=== PATIENT | female | born 1945 | race Caucasian/White ===

== ENCOUNTER 2023-11-08 23:19 | Inpatient (IN) | payer MEDICARE, OTHER, SELFPAY ==
[2023-11-08] VITALS (10 sets, daily range): BP systolic 86–110; BP diastolic 50–74; BMI 19.3
[2023-11-08] MEDS: DUONEB 3 ML INH (21:51)
[2023-11-08] MEDS: SOLU-MEDROL PF 125 MG IV (21:53)
[2023-11-08 22:09] LABS: % Basophils 0.3 % (0-2); % Eosinophils 0.1 % (0-6); % Lymphocytes 4.2 % (20.5-51.1); % Monocytes 4.4 % (1.7-9.3); Absolute Immature Granulocytes 0.1 10^3/uL (0-0.05); Absolute Lymphocytes 0.5 10^3/uL (1.2-3.4); Absolute Monocytes 0.5 10^3/uL (0.1-0.6); Absolute Neutrophils 10.4 10^3/uL (1.4-6.5); Hematocrit 34.3 % (37.0-47.0); Hemoglobin 11.7 g/dL (12.0-16.0); Mean Corp Hgb Conc. 34.1 g/dL (33.0-37.0); Mean Corpuscular Hgb 31.6 pg (27.0-31.0); Mean Corpuscular Volume 92.7 fL (81.0-99.0); Mean Platelet Volume 10.3 fL (7.4-10.4); Nucleated Red Blood Cells % 0 %; Platelet Count 293 10^3/uL (130-400); Red Cell Dist. Width 13.7 % (11.5-14.5); White Blood Cell Count 11.5 10^3/uL (4.8-10.8)
[2023-11-08 22:23] LABS: COVID-19 Antigen Negative (Negative)
[2023-11-08] MEDS: CARDIZEM 10 MG IV (22:24)
--- NOTE | 2023-11-08 22:24 | ED.GENMED ---
History of Present Illness
General
Chief Complaint: Breathing Problem
Source: patient, records and family
Exam Limitations: none
Time Seen by Provider: 11/08/23 21:41
Nursing documentation reviewed up to this point in time: agreed with
Travel History
Have you had any contact with someone who has COVID-19?: No
Do you have any symptoms of coronavirus? Fever > 100 degrees, chills, cough, shortness of breath, sore throat, loss of taste or smell, muscle aches, or headache?: No
History of Present Illness
History of Present Illness:
78-year-old female with a past medical history of COPD, chronic respiratory failure on 2 L home oxygen, atrial fibrillation, hyperlipidemia who presents to the emergency room from home with her daughter (RN here) and son for evaluation of shortness
of breath. Patient reports onset of hacking dry cough and increasing shortness of breath over the past week or so. Family noted increasing work of breathing over that period of time. Symptoms seem to be worsening which prompted trip to the
emergency room tonight. Patient denies any fevers or chills. Denies any swelling or pain in the legs. Has not had any chest pain. According to family she has had increasing weakness had a minor fall out of bed a few days ago and laid on the
ground for a few hours as a result of this weakness. She apparently had an outpatient stress test and had some chest imaging as part of this shortly after onset of symptoms. Chest imaging apparently showed a questionable pneumonia although patient
has not been on antibiotics.
Past History
Past History
ED Past Medical History: Arrthythmia, COPD and Other; Negative CHF
ED Past Surgical History: Orthopedic
Social History
Tobacco: Smoker
Alcohol: None
Drug: None
Personal:
Living: with family
Employment: Retired
Family History
Family History: Other (Noncontributory)
Review of Systems
Review of Systems
All Other Systems: ROS reviewed and negative except as documented in HPI and ROS
Constitutional: Reports fatigue; Denies fever or chills
EENT: Reports runny nose; Denies sore throat
Respiratory: Reports cough and trouble breathing
Cardiac: Denies chest pain or diaphoresis
ABD/GI: Denies abdominal pain, nausea or vomiting
: Denies flank pain
Musculoskeletal: Denies edema, neck pain or back pain
Neurological: Denies dizzy or headache
Phy Exam
Physical Exam
Physical Exam:
General: Awake, alert; no acute distress
Head: Normocephalic, atraumatic
Eyes: Conjunctiva normal, sclera anicteric
Throat: Airway intact, dry mucous membranes
Neck: Trachea midline, supple without meningismus
Lungs: Patient is saturating 95% on her normal 2 L home oxygen; she does have some mild tachypnea but is not in respiratory distress; she has diffuse bilateral expiratory wheezing with frequent coughing; wheezing more pronounced to the left lung base
Heart: Regular rate and rhythm, no murmurs, gallops, or rubs appreciated
Abd: Soft, non distended, nontender
Neuro: Cranial nerves grossly intact, speech fluid
Skin: no rash
Extremities: No edema in extremities, warm and well-perfused
Scores
Heart Failure Risk
Heart Failure Risk Score: Not Applicable
Heart Score for Chest Pain Patients
STEMI patient?: Not applicable
Withdrawal Assessment of Alcohol
Withdrawal Assessment Completed?: Not applicable
Course
Orders/Labs/Results
Orders:
Orders
11/08/23 21:42
Electrocardiogram (*1) Urgent
Reason for Study: Shortness of Breath
EKG- Treatment ONCE
Ipratropium/Albuterol Sulfate [Duoneb] 3 ml INH R NOW STA
MethylPREDNISolone PF [Solu-Medrol Pf] 125 mg IV NOW STA
CR Chest Portable - 1 View Urgent
Comment:
Reason For Exam: sob
Reason Study Needs to be Portable: Unable to Transport
11/08/23 21:46
COVID-19 Antigen Urgent
Source: Nasal Swab
Complete Blood Count/With Diff Urgent
Comprehensive Metabolic Panel Urgent
NT-proBNP Urgent
Troponin I Urgent
Influenza A+B Rapid Molecular Urgent
ANDREIA Source: Nasal Swab
Specimen Description:
11/08/23 22:16
Diltiazem 125 mg/125 ml Nss [Cardizem] 125 mg in 125 ml IV NOW
Initial dose in mg/hr, then titrate:: 5
Titrate to keep:: Heart rate 80-100 bpm
Titrate by mg/hr:: 5 mg/hr
Frequency of titrations (minutes):: 15
Maximum dose in mg/hr:: 15
Diltiazem HCl [Cardizem] 10 mg IV NOW STA
11/08/23 22:20
CPK [Creatine Phosphokinase] Urgent
0.9% Sodium Chloride 500 ml [Nss] 500 ml IV BOLUS
LevoFLOXacin 750 MG/150 ML [Levaquin] 750 mg in 150 ml IV NOW
Abnormal Lab Results
11/08/23
21:46
WBC 11.5 H 10^3/uL
(4.8-10.8)
RBC 3.70 L 10^6/uL
(4.20-5.40)
Hgb 11.7 L g/dL
(12.0-16.0)
Hct 34.3 L %
(37.0-47.0)
MCH 31.6 H pg
(27.0-31.0)
Abs Immat Gran (auto) 0.1 H 10^3/uL
(0-0.05)
Absolute Neuts (auto) 10.4 H 10^3/uL
(1.4-6.5)
Absolute Lymphs (auto) 0.5 L 10^3/uL
(1.2-3.4)
Immature Gran % 1.0 H %
(0-0.5)
Neutrophils % 90.0 H %
(42.2-75.2)
Lymphocytes % 4.2 L %
(20.5-51.1)
11/08/23 21:46
Vital Signs
Initial and Last Documented VS:
Initial Vital Signs
Temp Pulse Resp BP Pulse Ox
37.0 C 81 25 110/50 95
11/08/23 21:37 11/08/23 21:37 11/08/23 21:37 11/08/23 21:37 11/08/23 21:37
Last Documented Vital Signs
Temp Pulse Resp BP Pulse Ox
37.0 C 81 25 110/50 95
11/08/23 21:37 11/08/23 21:37 11/08/23 21:37 11/08/23 21:37 11/08/23 21:37
MDM/Problems Addressed
Differential Diagnosis Includes:
COPD exacerbation, pneumonia, CHF
MDM/Problems Addressed:
78-year-old female presents for evaluation of worsening cough and shortness of breath over the past week. Also having increasing generalized weakness. There was a question of pneumonia on outpatient imaging but patient is not currently on
antibiotics. Vital signs significant for tachypnea. Pulse ox acceptable on her normal 2 L of home oxygen. Physical exam as above. Plan to place an IV check labs including a CBC and a CMP, lactate, blood cultures. Will check BNP. Check a chest
x-ray and EKG. Swab for COVID and influenza. Treat with DuoNeb and steroids. Monitor closely reassess at the above.
Clinical reassessment after DuoNeb patient still with significant bilateral wheezing. Unfortunately after receiving neb treatment heart rate increased repeat EKG shows A-fib with RVR heart rates in the 140s to 160s. Will treat with diltiazem for
some rate control and provide some fluids. Chest x-ray reviewed by me shows likely minor opacity retrocardiac on the left side as well as right basilar opacity. Will cover with Levaquin as patient is penicillin allergic.
Initial CBC shows slight leukocytosis to 11.5. Marginal anemia. 90% neutrophils. I think at this point will admit for continued management of COPD exacerbation with likely pneumonia as well and A-fib with RVR. Case discussed with hospitalist for
admission.
Chronic conditions affecting care:
Atrial fibrillation, COPD, chronic respiratory failure
Acute Exacerbation and/or Progression of Chronic Illness:
Acute COPD exacerbation managed with DuoNeb and steroids
Acute exacerbation of A-fib with RVR today�treated with diltiazem
Acute Exacerbation and/or Progression of Chronic Illness: Arrhythmia and COPD
*Pulse Oximetry
Patient hypoxic: no
*EKG
Interpreted by ED Provider?: Yes
Heart Rate: 169
Rate: tachycardiac
Rhythm: a-fib
[place]: left axis deviation
Interval: normal interval
QRS Pattern: normal QRS
Ischemia: non-specific ST changes
*Critical Care Note
Total Time (30-74mins, 75-104mins- exclusive of procedures): Not Applicable
Data Reviewed
Review of Other/Old Records Reveals: Labs and Records
Source: patient, records and family
Patient Management
Discussion with other providers: Hospitalist (Discussed with hospitalist)
Escalation/DeEscalation of care consider admission/obs:
Admission indicated
ED Attending Note
-
Portions of this chart may have been created with voice recognition software.� Occasional wrong word or��sound alike� substitutions may have occurred due to the inherent limitations of voice recognition software.
Discharge Plan
Departure
Patient Disposition: Admit
Date of Disposition: 11/08/23
Time of Disposition: 22:31
Admit to doctor: Mishel
Presentation/result/management discussed w/ accepting MD/DO: Hospitalist
Discharge Problem:
COPD with exacerbation, Atrial fibrillation with RVR, Pneumonia
Prescriptions:
No Action
fluticasone propion-salmeterol [Wixela Inhub] 250-50 mcg/dose blister with device
1 ea INHALATION R BID
ascorbic acid (vitamin C) [Vitamin C] 1,000 mg Tablet
1,000 mg PO DAILY
albuterol sulfate 2.5 mg /3 mL (0.083 %) solution for nebulization
2.5 mg inhalation R Q6 PRN (Reason: sob)
diltiazem HCl 240 mg capsule,extended release 24hr
240 mg PO DAILY
hydrocodone-acetaminophen 10-325 mg tablet
1 tab PO Q4H PRN (Reason: moderate pain)
Patient Comments:
12/21/2022: last filled 11/21/22, 120 tabs for 20 days from [id number]
aspirin 81 mg Tablet,Delayed Release (Dr/Ec)
81 mg PO DAILY
alprazolam 0.5 mg tablet
0.5 mg PO TID PRN (Reason: anxiety)
Patient Comments:
12/21/2022: last filled 12/05/22, 90 tabs for 30 days from [facility][id number]
citalopram 20 mg tablet
20 mg PO DAILY
pantoprazole 40 mg tablet,delayed release (DR/EC)
40 mg PO DAILY
montelukast 10 mg tablet
10 mg PO DAILY
pyridoxine (vitamin B6) [Vitamin B-6] 100 mg Tablet
100 mg PO DAILY
levothyroxine [Synthroid] 112 mcg tablet
112 mcg PO MOTUWETHFRSA
levothyroxine [Synthroid] 112 mcg tablet
56 mcg PO JEAN
rosuvastatin 5 mg tablet
5 mg PO DAILY
calcium carbonate-vitamin D3 [Calcium 500 + D] 500 mg-10 mcg (400 unit) Tablet,Chewable
1 tab PO BID
cholecalciferol (vitamin D3) [Vitamin D3] 25 mcg (1,000 unit) Tablet
75 mcg PO QPM
Prolia 60 mg/mL Syringe
60 mg SC [id number]
Spiriva Respimat 2.5 mcg/actuation mist
2 puff INHALATION R DAILY
levalbuterol HCl 0.63 mg/3 mL solution for nebulization
0.63 mg INHALATION R TID
fluticasone propionate 50 mcg/actuation spray,suspension
1 spray INTRANASAL DAILY
nicotine 14 mg/24 hr Patch 24 Hour
14 mg transdermal DAILY Qty: 14 0RF
prednisone 20 mg Tablet
10 mg PO DAILY Qty: 0 0RF
diazepam 5 mg Tablet
5 mg PO TID PRN (Reason: muscle spasm) Qty: 0 0RF
Patient Comments:
12/21/2022: last filled 12/20/22, 90 tabs for 30 days from [facility]#[id number]
Interventions
Interventions:
*General Assessment Last Done: 11/08/23 21:37
*ED COVID-19 Vaccine History Last Done: 11/08/23 21:37
[2023-11-08] MEDS: NSS 500 IV (22:25)
[2023-11-08] MEDS: CARDIZEM 125 IV (22:25)
--- NOTE | 2023-11-08 22:25 | HPS.HSE ---
Addendum entered and electronically signed by Baudilio Florentino MD 11/08/23 22:56:
I saw and examined the patient.
The DIRECTOR OF INSTITUTIONAL RESEARCH or PA's note was reviewed and I agree with the note.
Comment:
HPI
78F from Home with daughter RN HX COPD, chronic respiratory failure on 2 L home oxygen, atrial fibrillation, hyperlipidemia evalauting at ER shortness of breath.
Reports onset of hacking dry cough and increasing shortness of breath over the past week or so.
Family noted increasing work of breathing over that period of time.
Symptoms seem to be worsening which prompted trip to the emergency room tonight.
According to family she has had increasing weakness had a minor fall out of bed a few days ago and laid on the ground for a few hours as a result of this weakness.
She apparently had an outpatient stress test
ROS:
Denies any fevers or chills.
Denies any swelling or pain in the legs.
No chest pain. and had some chest imaging as part of this shortly after onset of symptoms.
PMHX : Arrhythmia, COPD
PSHX: Orthopedic
SHX
Tobacco: Smoker
Alcohol: None
Drug: None
Personal:
Living: with family
Employment: Retired
FHX: Other (Noncontributory)
Reviewed VS: Tachypneic POx 95 on 2 L otherwise unremarkable
PE
Gen: no acute distress
HEENT: anicteric , no pallor
Neck: supple
Lungs: mild tachypnea plus diffuse bilateral expiratory wheezing, frequent coughing
Cor: RRR Murmur on examination, HX MVP
Abdomen: Soft, non distended, nontender
FLIGHT COMMUNICATIONS OPERATOR: NFND
MS: No edema in extremities
Psych: appropriate
Data
WCC 11.5
hgb 11.7 - baseline 11- 12
Na 131
Nl Cr and nl GFR
Pending CPKs
Pending TPNI
Pending pBNP
Pending PCT
NEG Covid Ag
CXR report: no acute pathology
Last hospitalist admission: 12/22/23 - 12/24/22
DC DXs:
1. Syncope.
2. Chronic tremor.
3. Progressive cognitive impairment.
4. Paroxysmal atrial fibrillation.
5. Chronic obstructive pulmonary disease on chronic oxygen.
6. Active smoker.
7. Hypothyroidism.
8. Hyperlipidemia.
9. Gastroesophageal reflux disease.
10.Depression, anxiety.
11.Chronic back pain.
ASSESSMENT & PLAN
AE COPD with bronchospasm
HX chr hypoxic RF on home O2 - stable
Current smoker - refuse Nicotine patch
NEG CXR for acute process
- IV Decadron 6mg q8H
- DuoNebs qid and PRN
- Empiric IV LVQ
- cont home O2 2l
- EKG to monitor QTc
- Pul consult
Fast AF
HX Prx AF but not on AC
P Card at OSH
- Diltiazem gtt
- DCA Card consult
HX mitral valve prolapse
Pending pro BNP
- cont CHILD CARE COORDINATOR PO Lasix
HX intention tremor/memory impairment - MCI ?
-Possibly underlying dementia versus Parkinson's disease
-Outpatient neurology follow-up
Hypothyroidism
Hyperlipidemia
- cont. Statin
GERD
- cont. Protonix
Depression/anxiety
- cont. citalopram
- cont. CHILD CARE COORDINATOR Xanax
Chronic back pain
- cont. hydrocodone/Tylenol
DVT Px: LMWH
Code: DNR
IMU
Original Note:
Family Physician
-
Family Physician:
Chief Complaint
-
sob
non productive cough
History of Present Illness
78-year-old female with a past medical history of COPD, chronic respiratory failure on 2 L home oxygen, atrial fibrillation, hyperlipidemia presented to us with sob, worse with activity, non productive cough for past one week. denied chest pain.
denied fever, chills. denied TODD, dizzy or syncopal episode. denied abdominal pain, n,v,d. denied dysuria or hematuria.
on arrival to ER noted atrial fib with RVR. initiated on Cardizem drip. steroids nebs for COPD exacerbation. admitting for further management.
Medical History
Past Medical History
Past Medical History: Reports Other
Additional Past Medical History:
COPD on 2 L at night, paroxysmal atrial fibrillation on aspirin, mitral valve prolapse, active smoker, anxiety/depression, GERD, thyroid cancer�
Past Surgical History: Reports Other
Additional Past Surgical History:
spinal fusion
thyroidectomy for thyroid cancer.
Social History
Tobacco: Smoker
Alcohol: None
Drug: None
Personal: Single
Living: With Family
Family History
Family History: Not pertinent
Allergies / Home Medications
Allergies reflects when Allergies were last updated in [email or web address].
Home Medications with original date entered in [email or web address]
Allergy/Medication List:
Allergies
Allergy/AdvReac Type Severity Reaction Status Date / Time
clindamycin Allergy Unknown Verified 11/08/23 21:38
Penicillins Allergy Rash Verified 11/08/23 21:38
tetracycline Allergy Unknown Verified 11/08/23 21:38
Home Medications
albuterol sulfate 2.5 mg/3 mL (0.083 %) solution for nebulization 2.5 mg inhalation R Q6 PRN sob 07/05/22
alprazolam 0.5 mg tablet 0.5 mg PO TID PRN anxiety 07/05/22
ascorbic acid (vitamin C) 1,000 mg tablet (Vitamin C) 1,000 mg PO DAILY Supplement 07/05/22
aspirin 81 mg tablet,delayed release 81 mg PO DAILY Blood clot prevention/tx 07/05/22
calcium carbonate 500 mg-vitamin D3 10 mcg (400 unit) chewable tablet (Calcium 500 + D) 1 tab PO BID Supplement 07/05/22
cholecalciferol (vitamin D3) 25 mcg (1,000 unit) tablet (Vitamin D3) 75 mcg PO QPM Supplement 07/05/22
citalopram 20 mg tablet 20 mg PO DAILY Depression 07/05/22
denosumab 60 mg/mL subcutaneous syringe (Prolia) 60 mg SC [id number] osteoporosis 07/05/22
diltiazem HCl 240 mg capsule,extended release 24 hr 240 mg PO DAILY Arrhythmia 07/05/22
fluticasone 250 mcg-salmeterol 50 mcg/dose blistr powdr for inhalation (Raji Inhub) 1 ea inhalation R BID Lung/breathing issues 07/05/22
hydrocodone 10 mg-acetaminophen 325 mg tablet 1 tab PO Q4H PRN moderate pain 07/05/22
levothyroxine 112 mcg tablet (Synthroid) 56 mcg PO JEAN Thyroid 07/05/22
levothyroxine 112 mcg tablet (Synthroid) 112 mcg PO MOTUWETHFRSA Thyroid 07/05/22
montelukast 10 mg tablet 10 mg PO DAILY Allergies 07/05/22
pantoprazole 40 mg tablet,delayed release 40 mg PO DAILY Gastrointestinal issue 07/05/22
pyridoxine (vitamin B6) 100 mg tablet (Vitamin B-6) 100 mg PO DAILY Supplement 07/05/22
rosuvastatin 5 mg tablet 5 mg PO DAILY High cholesterol 07/05/22
tiotropium bromide 2.5 mcg/actuation mist for inhalation (Spiriva Respimat) 2 puff inhalation R DAILY Lung/breathing issues 07/05/22
fluticasone propionate 50 mcg/actuation nasal spray,suspension 1 spray intranasal DAILY Allergies 12/21/22
levalbuterol HCl 0.63 mg/3 mL solution for nebulization 0.63 mg inhalation R TID Lung/breathing issues 12/21/22
diazepam 5 mg tablet 5 mg PO TID PRN muscle spasm #0 tabs 12/24/22
nicotine 14 mg/24 hr daily transdermal patch 14 mg transdermal DAILY #14 ea 12/24/22
prednisone 20 mg tablet 10 mg PO DAILY Anti-inflammatory #0 tabs 12/24/22
prednisone 5 mg tablet 5 mg PO DAILY 11/08/23
Review of Systems
-
Constitutional: Reports No Symptoms
EENT: Reports No Symptoms
Respiratory: Reports Cough and Trouble Breathing
Cardiac: Reports No Symptoms
Abdomen/GI: Reports No Symptoms
: Reports No Symptoms
Musculoskeletal: Reports No Symptoms
Skin: Reports No Symptoms
Neurological: Reports No Symptoms
Endocrine: Reports No Symptoms
Hematologic/Lymphatic: Reports No Symptoms
Psych: Reports No Symptoms
Physical Exam
Vital Signs
Vital Signs
Temp Pulse Resp BP Pulse Ox
98.6 F 81 25 110/50 95
11/08/23 21:37 11/08/23 21:37 11/08/23 21:37 11/08/23 21:37 11/08/23 21:37
Physical Exam
General: Well Developed, Well Nourished and No Apparent Distress
HEENT: NormoCephalic, Moist mucous membranes and Atraumatic
Respiratory: Wheezes and Rales
Cardiac: S1/S2 and Regular Rhythm; No Murmur or Rub
GI: Soft, Non Tender, Non Distended and Normal Bowel Sounds; No Organomegaly
Rectal: Deferred by Provider
Musculoskeletal: No Clubbing, No Cyanosis and No Edema
Skin: No Rash
Neuro: AO x 3 and Nonfocal/grossly intact
Psych: Calm
Laboratory Results
-
11/08/23 21:46
Data Reviewed
-
Lab Data: Labs Reviewed by me
Impression/Plan
-
#COPD exacerbation
-Chronic respiratory failure, o2 dependant at home
-uses 2l at home
-chest x ray with No acute cardiopulmonary process.
-nebs prn for sob/wheezing
-continue supplemental oxygen to keep sat>92
-Decadron 6mg every 8 hours
-wean as tolerated
-pulmonary consulted
#atrial fib with RVR
-Cardizem drip continued
-cardiology cons pain consulted
Active smoker
-denied nicotine patch
-encourage smoking cessation
#Hypothyroidism
-levothyroxine continued
#Hyperlipidemia
-Continue statin
#GERD
-Continue Protonix
#Depression/anxiety
-Continue citalopram
-Continue Xanax
#Chronic back pain
-Continue hydrocodone/Tylenol
#DNR
[2023-11-08 22:26] LABS: ALT (SGPT) 29 U/L (0-35); AST (SGOT) 35 U/L (14-36); Albumin 3.2 g/dl (3.5-5.0); Alkaline Phosphatase 70 U/L (38-126); Blood Urea Nitrogen 20 mg/dl (7-17); Calcium 8.7 mg/dl (8.4-10.2); Carbon Dioxide 28 mmol/L (22-30); Chloride 99 mmol/L (98-107); Estimated Creatinine Clearance 65 ml/min; Glucose 96 mg/dl (70-99); Sodium 131 mmol/L (135-145); Total Bilirubin 0.5 mg/dl (0.2-1.3); Total Protein 5.7 g/dl (6.3-8.2); eGFR > 60.00
[2023-11-08] MEDS: LEVAQUIN 150 IV (22:30)
[2023-11-08 22:33] LABS: NT-proBNP 3220 pg/ml; Troponin I 0.047 ng/ml
[2023-11-09] VITALS (16 sets, daily range): BP systolic 90–113; BP diastolic 47–82; PULSE 83–88; O2SAT 91; BMI 20.4
[2023-11-09 00:02] LABS: Creatine Phosphokinase 85 U/L (30-135)
--- NOTE | 2023-11-09 00:36 | PTCARENOTE ---
Converted to NSR.
[2023-11-09] MEDS: DECADRON 6 MG IV ×4 (01:20→23:47)
--- NOTE | 2023-11-09 01:44 | PTCARENOTE ---
Caring for pt overnight. Admit to floor. Daughter at bedside. pt aaox3, pleasant. When arrived pt was Afib on monitor & cardizem gtt. Shortly after arriving pt flipped back into NSR around 0036. HR 80's. EXTRACTION SUPERVISOR aware, no ekg ordered. Orders to hold
cardizem gtt for 1 hour and monitor if should continue to or not. BP's soft. Continues on 2LNC. Pt c/o back pain, when assessed pt had a moderate sized scab on her left upper back with redness surrounding it. Pt stated she uses a heating pad at home
& daughter confirmed it is from the heating pad. wound consult in, if necessary. NO other issues at this time. Call mead in reach. Bed alarm on. Will monitor HR & rhythm.
[2023-11-09] MEDS: SYNTHROID 112 MCG PO (05:26)
[2023-11-09 05:53] LABS: Hematocrit 30.4 % (37.0-47.0); Hemoglobin 10.3 g/dL (12.0-16.0); Mean Corp Hgb Conc. 33.9 g/dL (33.0-37.0); Mean Corpuscular Hgb 31.7 pg (27.0-31.0); Mean Corpuscular Volume 93.5 fL (81.0-99.0); Mean Platelet Volume 10.4 fL (7.4-10.4); Platelet Count 252 10^3/uL (130-400); Red Blood Cell Count 3.25 10^6/uL (4.20-5.40); Red Cell Dist. Width 13.7 % (11.5-14.5); White Blood Cell Count 8.3 10^3/uL (4.8-10.8)
[2023-11-09 05:57] LABS: Blood Urea Nitrogen 23 mg/dl (7-17); Calcium 8.2 mg/dl (8.4-10.2); Carbon Dioxide 31 mmol/L (22-30); Chloride 101 mmol/L (98-107); Estimated Creatinine Clearance 69 ml/min; Glucose 133 mg/dl (70-99); Potassium 4.4 mmol/L (3.5-5.1); Sodium 133 mmol/L (135-145); eGFR > 60.00
[2023-11-09] MEDS: PROTONIX 40 MG PO (08:21)
[2023-11-09] MEDS: SINGULAIR 10 MG PO (08:21)
[2023-11-09] MEDS: CRESTOR 5 MG PO (08:21)
[2023-11-09] MEDS: ASPIR LOW (ENTERIC COATED) 81 MG PO (08:21)
[2023-11-09] MEDS: OSCAL 500 + D 500 MG PO ×2 (08:21→20:55)
[2023-11-09] MEDS: CELEXA 20 MG PO (08:21)
[2023-11-09] MEDS: SPIRIVA RESPIMAT 2.5 MCG 2 PUFF INH (08:32)
--- NOTE | 2023-11-09 09:42 | CON.CAR ---
Addendum entered and electronically signed by Nava Jameson MD 11/09/23 11:58:
I saw and examined the patient.
The BOOK ILLUSTRATOR's note was reviewed and I agree with the note.
Comment: 78 y/o pt who is followed by Dr. Morris [facility] cardiology for mild , mild-mod MS, PAF, SVT, with COPD� who presented with worsening SOB and palpitations.� She was noted to be in atrial fibrillation with rapid ventricular response when
she arrived. This has since resolved. Currently, she is very fatigued but otherwise without complaint. On exam she is lethargic but then arousable. She has diffuse rhonchi when listened on lung exam. Regular rate and rhythm. No extremity
edema. We discussed her atrial fibrillation. She does not want to discuss any treatment plan without her primary cable tender involvement. She would rather follow-up as an outpatient. Given she is back in sinus rhythm, we resumed her diltiazem.
I again recommended anticoagulation but she will follow-up with her primary care doctor. I again explained given her valvulopathy, she should discuss a plan to maintain sinus rhythm. She will do that with her primary cable tender.
She does not appear volume overloaded. I suspect her pulmonary findings are due to her COPD and ongoing smoking.
Findings discussed with Dr. Howe. I will sign off.
Original Note:
Consultation
Consultation Request
Date/Time Consultation Requested: 11/09/23 0800
Date/Time Consultation Performed: 11/09/23 0930
Requesting Provider: Dr. Florentino
Performing Provider: Dr. Jameson
Reason for Consultation: AF RVR , SOB
Medical History
-
Chief Complaint: SOB
History of Present Illness:
78 y/o pt who is followed by Dr. Morris [facility] cardiology for mild , mild-mod MS, PAF, SVT, with COPD who presented with worsening SOB and palpitations. Family also noted per notes increased weakness and fatigue over last few days. She thinks
her SOB acutely got worse yesterday. She did feel a faster heart beat with it. No CP, lightheadedness associated. She thinks her last AF episode was many years ago. She recalls maybe having a conversation with Dr. Morris about blood thinners but is
unsure why she is not on anticoagulation. She recalls maybe he told her she declined in past but she is unsure why. No history of falls or significant bleeds. She believes she recently has a stress test as well. She went back into [facility] around
midnight and can tell her breathing feels better and palpitations have gone away.
Past Medical History
Past Medical History: Other (COPD, SVt, PAF, Mitral stenosis, aortic stenosis, hypothyroidism, hyperlipidemia)
Past Surgical History: Orthopedic
Social History
Tobacco: Smoker (less than 1/2 pk per day)
Alcohol: None
Living: With Family
Employment: Retired
Family History
Family History: Reviewed & Not Pertinent
Allergies / Home Medications
Allergy/AdvReac Type Severity Reaction Status Date / Time
clindamycin Allergy Unknown Verified 11/08/23 21:38
Penicillins Allergy Rash Verified 11/08/23 21:38
tetracycline Allergy Unknown Verified 11/08/23 21:38
Medication Instructions Recorded Confirmed Type
albuterol sulfate 2.5 mg/3 mL 2.5 mg inhalation R Q6 PRN sob 07/05/22 11/08/23 History
(0.083 %) solution for nebulization
alprazolam 0.5 mg tablet 0.5 mg PO TID PRN anxiety 07/05/22 11/08/23 History
ascorbic acid (vitamin C) 1,000 mg 1,000 mg PO DAILY Supplement 07/05/22 11/08/23 History
tablet (Vitamin C)
aspirin 81 mg tablet,delayed 81 mg PO DAILY Blood clot 07/05/22 11/08/23 History
release prevention/tx
calcium carbonate 500 mg-vitamin 1 tab PO BID Supplement 07/05/22 11/08/23 History
D3 10 mcg (400 unit) chewable
tablet (Calcium 500 + D)
cholecalciferol (vitamin D3) 25 75 mcg PO QPM Supplement 07/05/22 11/08/23 History
mcg (1,000 unit) tablet (Vitamin
D3)
citalopram 20 mg tablet 20 mg PO DAILY Depression 07/05/22 11/08/23 History
denosumab 60 mg/mL subcutaneous 60 mg SC [id number] osteoporosis 07/05/22 11/08/23 History
syringe (Prolia)
diltiazem HCl 240 mg 240 mg PO DAILY Arrhythmia 07/05/22 11/08/23 History
capsule,extended release 24 hr
fluticasone 250 mcg-salmeterol 50 1 ea inhalation R BID 07/05/22 11/08/23 History
mcg/dose blistr powdr for Lung/breathing issues
inhalation (Wixela Inhub)
hydrocodone 10 mg-acetaminophen 1 tab PO Q4H PRN moderate pain 07/05/22 11/08/23 History
325 mg tablet
levothyroxine 112 mcg tablet 56 mcg PO JEAN Thyroid 07/05/22 11/08/23 History
(Synthroid)
levothyroxine 112 mcg tablet 112 mcg PO MOTUWETHFRSA Thyroid 07/05/22 11/08/23 History
(Synthroid)
montelukast 10 mg tablet 10 mg PO DAILY Allergies 07/05/22 11/08/23 History
pantoprazole 40 mg tablet,delayed 40 mg PO DAILY Gastrointestinal 07/05/22 11/08/23 History
release issue
pyridoxine (vitamin B6) 100 mg 100 mg PO DAILY Supplement 07/05/22 11/08/23 History
tablet (Vitamin B-6)
rosuvastatin 5 mg tablet 5 mg PO DAILY High cholesterol 07/05/22 11/08/23 History
tiotropium bromide 2.5 2 puff inhalation R DAILY 07/05/22 11/08/23 History
mcg/actuation mist for inhalation Lung/breathing issues
(Spiriva Respimat)
fluticasone propionate 50 1 spray intranasal DAILY Allergies 12/21/22 11/08/23 History
mcg/actuation nasal
spray,suspension
levalbuterol HCl 0.63 mg/3 mL 0.63 mg inhalation R TID 12/21/22 11/08/23 History
solution for nebulization Lung/breathing issues
diazepam 5 mg tablet 5 mg PO TID PRN muscle spasm #0 12/24/22 11/08/23 Rx
tabs
nicotine 14 mg/24 hr daily 14 mg transdermal DAILY #14 ea 12/24/22 11/08/23 Rx
transdermal patch
prednisone 20 mg tablet 10 mg PO DAILY Anti-inflammatory 12/24/22 12/21/22 Rx
#0 tabs
prednisone 5 mg tablet 5 mg PO DAILY 11/08/23 11/08/23 History
Review of Systems
-
History Source: Patient
Constitutional: No Symptoms
EENT: No Symptoms
Respiratory: Cough and Trouble Breathing
Cardiac: No Symptoms
Abdomen/GI: No Symptoms
Musculoskeletal: No Symptoms
Neurological: No Symptoms
Physical Exam
Vital Signs
Temp Pulse Resp BP Pulse Ox
98.9 F 73 22 94/56 95
11/09/23 08:18 11/09/23 08:36 11/09/23 08:36 11/09/23 06:00 11/09/23 08:36
Lab Results
11/09/23 05:31
11/09/23 05:31
Troponin I 0.047 ng/ml H* 11/08/23 21:46
Yqa-L-Ceaqmmfcipg Pept 3220 pg/ml 11/08/23 21:46
Physical Exam
General: No Apparent Distress and Comfortable
HEENT: Normocephalic and Anicteric
Respiratory: Rhonchi (coarse throughout)
Cardiac: S1/S2 and Regular Rhythm
Breast: Deferred by me
GI: Soft, Non Tender and Normal Bowel Sounds
Rectal: Deferred by Provider
Musculoskeletal: No Clubbing, No Cyanosis and Edema (mild L ankle edema)
Skin: Warm and Dry
Neuro: AO x 3
Impression / Plan
-
AF RVR:
-prior history of PAF on diltiazem as OP
-CHADSVASC 3( age,female) not currently on anticoagulation. Discussed indication with pt. She would like to review with her primary cable tender prior to starting. Reviewed risk of thromboembolic events. Currently takes asa at home.
-converted around midnight . BP's low this am, con't monitor. once stable restart po diltiazem
-BNP was 3200 but does not appear volume overloaded
Valvular disease:
-noted on echo 12/2022 mild- mod MS MG 6mmhg,mild-mod MR mild PG/MG 22/12mmhg, ROSE 1.8
-follow up with her cable tender
hyperlipidemia:
-on statin
COPD:
-tx per primary team
-O2 q hs at home
Data Reviewed
-
EKG: Tracing Personally Visualized and interpreted ( 11/08/23 AF RVR 169 bpm, )
Medical Tests (Nuc Med, Echo etc): Report Reviewed by me (echo 12/24/22 EF 55 -60, mild-mod MS MG 6mmhg, mild-mod MR, mild PG/MG 22/12mmhg, ROSE 1.8cm2)
Labs: Labs Reviewed by me, Discussed with Physician and Discussed with Patient
Old Records: Reviewed
Critical Care Time (in minutes): Previous admissions
--- NOTE | 2023-11-09 10:25 | PTCARENOTE ---
Assumed care of patient at beginning of this shift from previous RN. HR 70s, SR on monitor; cardizem infusion had been discontinued on previous shift. Patient Ox3, but has some forgetfulness; bed alarm on for patient safety. When patient assisted
OOB to commode oxygen needed to be increased from 2l n/c to 3l n/c as POX dropped to 88% and patient was lee; Dr Howe made aware.
--- NOTE | 2023-11-09 10:52 | W.PN.HOSP.TC ---
Today's Communication/Plan
-
IV steroids
BC
ECHO
Trend trop
dc cardizem gtt and start po
cards recs
Assessment / Plan
Assessment / Plan
# Acute COPD exacerbation
-Chronic respiratory failure, o2 dependant at home
-uses 2l at home
-chest x ray with No acute cardiopulmonary process.
-nebs prn for sob/wheezing
-continue supplemental oxygen to keep sat>88
-Decadron 6mg every 8 hours
-bronchodialators
-mucinex/tessalon pearle
-wean as tolerated
-pulmonary consulted
#atrial fib with RVR
-s/p Cardizem drip. Converted to NSR.
-restart home dose Cardizem 240mg
-on asa.
-anticoag per cards
-Cards recs
#Elevated trop likely 2/2 afib RVR and AECOPD.
-Trend trop. 1st set elevated
-ECHO on saturday
Active smoker
-denied nicotine patch
-encourage smoking cessation
#Hypothyroidism
-levothyroxine continued
#Hyperlipidemia
-Continue statin
#GERD
-Continue Protonix
#Depression/anxiety
-Continue citalopram
-Continue Xanax
#Chronic back pain
-Continue hydrocodone/Tylenol
#DNR
Anticipated Discharge: > 48 hours
Subjective/Interval History
-
Date of Service: November 09, 2023
states of severe dry cough
cough worsened for last week
on 3L
Converted to NSR
Objective Data
-
Labs:
Laboratory Results
11/09/23
05:31
WBC 8.3
Hgb 10.3 L
Hct 30.4 L
Plt Count 252
Sodium 133 L
Potassium 4.4
Chloride 101
Carbon Dioxide 31 H
BUN 23 H
Creatinine 0.6
Glucose 133 H
Calcium 8.2 L
Vital Signs:
Vital Signs
Temp Pulse Resp BP Pulse Ox
98.9 F 80 19 106/65 91
11/09/23 08:18 11/09/23 10:00 11/09/23 10:00 11/09/23 10:00 11/09/23 10:00
Physical Exam
-
General: Well Developed and No Apparent Distress
HEENT: Normocephalic, Atraumatic and Moist Mucous Membranes
Respiratory: Wheezes and Rhonchi
Cardiac: Regular Rhythm and S1/S2; Negative Murmur, Rub or Gallop
GI: Soft, Nontender, Nondistended and Normal Bowel Sounds; Negative Organomegaly
Rectal: Deferred by Provider
Musculoskeletal: No Clubbing, No Cyanosis and No Edema
Skin: Negative Rash
Neuro: Awake, Alert, Oriented, AO x 3 and Nonfocal/Grossly Intact
Data Reviewed
-
Total Time Spent with Patient (in minutes): 55
[2023-11-09] MEDS: MUCINEX 600 MG PO (11:28)
[2023-11-09] MEDS: CARDIZEM CD 240 MG PO (11:28)
[2023-11-09 11:52] LABS: Troponin I 0.016 ng/ml
[2023-11-09] MEDS: VENTOLIN NEBULES 2.5 MG INH ×3 (12:04→20:36)
[2023-11-09] MEDS: NICODERM TRANSDERMAL 14 MG TRANSDERM (12:06)
--- NOTE | 2023-11-09 15:40 | CON.PUL ---
Consultation
Consultation Request
Date/Time Consultation Requested: 11/09/202310
Date/Time Consultation Performed: 11/09/2023 - 1002
Requesting Provider: MARIE Clemens
Performing Provider: Dr. Mark
Reason for Consultation: COPD exacerbation
Medical History
-
Chief Complaint: Worsening shortness of breath
History of Present Illness:
78-year-old female active smoker with a past medical history of COPD, thyroid cancer s/p thyroidectomy, history of SVT and GERD who presents with worsening shortness of breath. Patient has been using her inhalers more frequently. She also had a
stress test recently and developed back pain afterwards. In the ER she was tachycardic to 120, blood pressure 104/73 and she required 2 L a minute with saturations of 92%. In the ER she was hyponatremic to 131, troponin was elevated at 0.047, she
had leukocytosis to 11.5, slightly anemic to 11.7, and platelets were 293. COVID antigen was negative. CXR showed no acute cardiopulmonary process. EKG showed A-fib with RVR. She was given IV fluids with 500 cc of NS 0 point percent, antibiotics
with Levaquin, steroids with Solu-Medrol 125 mg, given Cardizem 10 mg and then started on Cardizem drip and admitted to the IMU for further care. Due to concern for acute COPD exacerbation, pulmonary now being consulted for additional
management/recommendations.
When I saw the patient she was in bed, daughter at bedside. Patient takes Wixela, Spiriva and prednisone 5 mg daily at home. She has been struggling with recurrent sinus infections. Last episode of sinus infection occurred last week with green
mucus 'pouring out of nose.' She apparently was supposed to be seeing ENT as an outpatient to discuss surgery. She also continues to smoke and has tried nicotine replacement therapy, nicotine cessation programs and medications (i.e. Chantix), to
no avail. Usually she can stop it and something triggers her in terms of stress and then she started smoking again and she also gets pain and she believes that the cigarettes help with the pain. She fell out of bed on Saturday night and slid onto
the ground and was there all night. She denies loss of consciousness or head trauma. She wears 2 L/min nasal cannula with sleep. She does not wear home oxygen during the day.
PMHx: History of thyroid cancer, panic attacks, history of SVT, GERD, COPD, history of A-fib, hypothyroidism, hiatal hernia, depression, chronic nocturnal hypoxemic respiratory failure with 2 L/min with sleep
PSHx: Left knee surgery, spinal fusion x 2 (T10-S1), thyroidectomy, x 2
Past Medical History
Past Medical History: Other (Above as per HPI)
Past Surgical History: Other (Above as per HPI)
Social History
Tobacco: Smoker (0.5 PPD)
Alcohol: None
Drug: None
Family History
Family History: Reviewed & Not Pertinent
Allergies / Home Medications
Allergies
Allergy/AdvReac Type Severity Reaction Status Date / Time
clindamycin Allergy Unknown Verified 11/08/23 21:38
Penicillins Allergy Rash Verified 11/08/23 21:38
tetracycline Allergy Unknown Verified 11/08/23 21:38
Home Medications
Medication Instructions Recorded Confirmed Last Taken Type
albuterol sulfate 2.5 mg/3 mL 2.5 mg inhalation R Q6 PRN sob 07/05/22 11/08/23 Unknown History
(0.083 %) solution for nebulization
alprazolam 0.5 mg tablet 0.5 mg PO TID PRN anxiety 07/05/22 11/08/23 Unknown History
ascorbic acid (vitamin C) 1,000 mg 1,000 mg PO DAILY Supplement 07/05/22 11/08/23 Unknown History
tablet (Vitamin C)
aspirin 81 mg tablet,delayed 81 mg PO DAILY Blood clot 07/05/22 11/08/23 Unknown History
release prevention/tx
calcium carbonate 500 mg-vitamin 1 tab PO BID Supplement 07/05/22 11/08/23 Unknown History
D3 10 mcg (400 unit) chewable
tablet (Calcium 500 + D)
cholecalciferol (vitamin D3) 25 75 mcg PO QPM Supplement 07/05/22 11/08/23 Unknown History
mcg (1,000 unit) tablet (Vitamin
D3)
citalopram 20 mg tablet 20 mg PO DAILY Depression 07/05/22 11/08/23 Unknown History
denosumab 60 mg/mL subcutaneous 60 mg SC Q4SSLDOL osteoporosis 07/05/22 11/08/23 Unknown History
syringe (Prolia)
diltiazem HCl 240 mg 240 mg PO DAILY Arrhythmia 07/05/22 11/08/23 Unknown History
capsule,extended release 24 hr
fluticasone 250 mcg-salmeterol 50 1 ea inhalation R BID 07/05/22 11/08/23 Unknown History
mcg/dose blistr powdr for Lung/breathing issues
inhalation (Wixela Inhub)
hydrocodone 10 mg-acetaminophen 1 tab PO Q4H PRN moderate pain 07/05/22 11/08/23 Unknown History
325 mg tablet
levothyroxine 112 mcg tablet 56 mcg PO JEAN Thyroid 07/05/22 11/08/23 Unknown History
(Synthroid)
levothyroxine 112 mcg tablet 112 mcg PO MOTUWETHFRSA Thyroid 07/05/22 11/08/23 Unknown History
(Synthroid)
montelukast 10 mg tablet 10 mg PO DAILY Allergies 07/05/22 11/08/23 Unknown History
pantoprazole 40 mg tablet,delayed 40 mg PO DAILY Gastrointestinal 07/05/22 11/08/23 Unknown History
release issue
pyridoxine (vitamin B6) 100 mg 100 mg PO DAILY Supplement 07/05/22 11/08/23 Unknown History
tablet (Vitamin B-6)
rosuvastatin 5 mg tablet 5 mg PO DAILY High cholesterol 07/05/22 11/08/23 Unknown History
tiotropium bromide 2.5 2 puff inhalation R DAILY 07/05/22 11/08/23 Unknown History
mcg/actuation mist for inhalation Lung/breathing issues
(Spiriva Respimat)
fluticasone propionate 50 1 spray intranasal DAILY Allergies 12/21/22 11/08/23 Unknown History
mcg/actuation nasal
spray,suspension
levalbuterol HCl 0.63 mg/3 mL 0.63 mg inhalation R TID 12/21/22 11/08/23 Unknown History
solution for nebulization Lung/breathing issues
diazepam 5 mg tablet 5 mg PO TID PRN muscle spasm #0 12/24/22 11/08/23 Unknown Rx
tabs
nicotine 14 mg/24 hr daily 14 mg transdermal DAILY #14 ea 12/24/22 11/08/23 Unknown Rx
transdermal patch
prednisone 20 mg tablet 10 mg PO DAILY Anti-inflammatory 12/24/22 12/21/22 Unknown Rx
#0 tabs
prednisone 5 mg tablet 5 mg PO DAILY 11/08/23 11/08/23 Unknown History
Review of Systems
-
History Source: Patient
All other systems: Negative unless noted (12 point ROS performed and is negative unless mentioned above.)
Vitals / Labs / Diagnostic Testing
Vital Signs
Temp Pulse Resp BP Pulse Ox
98.1 F 85 18 112/64 91
11/09/23 12:03 11/09/23 12:36 11/09/23 12:36 11/09/23 12:36 11/09/23 12:36
Lab Data
11/09/23 05:31
11/09/23 05:31
Microbiology
11/08/23 21:46 Nasal Swab Influenza Types A & B (DIXIE) - Final
Negative for Influenza A & B, NAAT
Negative results must be combined with clinical observations
and patient history.
Nucleic Acid Amplification test (NAAT)performed on the
[employer] platform.
Diagnostic Testing:
Physical Exam
-
HEENT: Normocephalic and Anicteric
Cardiovascular: S1/S2 and Peripheral Edema (negative)
Respiratory: Wheeze (right > left, during expiration) and Rhonchi (b/l)
GI: Soft, Non Distended and Non Tender
Neurology: Awake and Alert
Skin: Warm and Dry
General: Comfortable, Chills (negative) and Sweats (negative)
Assessment
-
Assessment: 78-year-old female active smoker with a past medical history of COPD, thyroid cancer s/p thyroidectomy, history of SVT and GERD who presents with worsening shortness of breath. Patient has been using her inhalers more frequently. She
also had a stress test recently and developed back pain afterwards. In the ER she was tachycardic to 120, blood pressure 104/73 and she required 2 L a minute with saturations of 92%. In the ER she was hyponatremic to 131, troponin was elevated at
0.047, she had leukocytosis to 11.5, slightly anemic to 11.7, and platelets were 293. COVID antigen was negative. CXR showed no acute cardiopulmonary process. EKG showed A-fib with RVR. She was given IV fluids with 500 cc of NS 0 point percent,
antibiotics with Levaquin, steroids with Solu-Medrol 125 mg, given Cardizem 10 mg and then started on Cardizem drip and admitted to the IMU for further care. Due to concern for acute COPD exacerbation, pulmonary now being consulted for additional
management/recommendations.
Chronic conditions [employer]ACE[employer]: History of thyroid cancer, panic attacks, history of SVT, GERD, COPD, history of A-fib, hypothyroidism, hiatal hernia, depression
Impression:
#Acute COPD exacerbation
#Recurrent sinus infections with recent rhinosinusitis infection
#Active tobacco use
#Atrial fibrillation with RVR s/p Cardizem drip
#Elevated troponin -likely type II MA in the setting of tachycardia with demand ischemia
#Chronic nocturnal hypoxemia on 2L/min with sleep
Plan:
- Continue systemic steroids (decadron 6mg IV q8hr) and wean as tolerated
- Maintain SpO2 >88% and wean O2 as tolerated
- Continue spiriva with albuterol QID
- she is s/p levaquin x1 dose --> would start Azithromycin and give 5 day course mainly for its anti-inflammatory effect
- prn tessalon perles
- nicotine patch
- raise mucinex to 1200mg q12hr
- obtain outpatient medical records from her merchandiser seasonal, Dr. Campos (in [place])
- Replete K>3.5, Mg>1.8
- Up OOB as tolerated
- PT/OT
- Maintain MAP>65
- DVT ppx
Pulmonary service will continue to follow along
Data:
CXR 11-08-2023: No acute cardiopulmonary process.
[2023-11-09] MEDS: VITAMIN D3 (cholecalciferol) 75 MCG PO (17:26)
[2023-11-09] MEDS: LOVENOX 40 MG SC (17:26)
[2023-11-09] MEDS: NORCO 7.5/325 1 TABLET PO (17:51)
[2023-11-09] MEDS: TESSALON PERLES 200 MG PO (17:55)
[2023-11-09] MEDS: ZITHROMAX INFUSION 250 IV (18:39)
[2023-11-09 20:02] LABS: Troponin I 0.013 ng/ml
[2023-11-09] MEDS: MUCINEX 1200 MG PO (20:55)
[2023-11-09] MEDS: SENOKOT 17.1999999999999993 MG PO (21:39)
[2023-11-09] MEDS: VALIUM 5 MG PO (23:48)
[2023-11-10] VITALS (10 sets, daily range): BP systolic 97–120; BP diastolic 51–66; BMI 18.7
[2023-11-10] MEDS: NORCO 7.5/325 1 TABLET PO ×3 (01:54→22:41)
[2023-11-10] MEDS: SYNTHROID 56 MCG PO (05:43)
--- NOTE | 2023-11-10 05:55 | PTCARENOTE ---
Patient stable overnight. No acute events. See documentation for vital signs and assessment. Medications given as per MAR. Patient very pleasant and conversant. Pain appeared well managed, pain medication given as needed.
[2023-11-10 05:59] LABS: Hematocrit 31.1 % (37.0-47.0); Hemoglobin 10.7 g/dL (12.0-16.0); Mean Corp Hgb Conc. 34.4 g/dL (33.0-37.0); Mean Corpuscular Hgb 31.9 pg (27.0-31.0); Mean Corpuscular Volume 92.8 fL (81.0-99.0); Mean Platelet Volume 10.5 fL (7.4-10.4); Platelet Count 281 10^3/uL (130-400); Red Blood Cell Count 3.35 10^6/uL (4.20-5.40); Red Cell Dist. Width 13.4 % (11.5-14.5); White Blood Cell Count 12.5 10^3/uL (4.8-10.8)
[2023-11-10] MEDS: TUMS 1 TABLET PO (06:13)
[2023-11-10 06:18] LABS: Blood Urea Nitrogen 32 mg/dl (7-17); Calcium 8.9 mg/dl (8.4-10.2); Carbon Dioxide 30 mmol/L (22-30); Chloride 97 mmol/L (98-107); Estimated Creatinine Clearance 63 ml/min; Glucose 144 mg/dl (70-99); Potassium 4.4 mmol/L (3.5-5.1); Sodium 132 mmol/L (135-145); eGFR > 60.00
[2023-11-10] MEDS: VENTOLIN NEBULES 2.5 MG INH ×3 (07:50→15:52)
[2023-11-10] MEDS: SPIRIVA RESPIMAT 2.5 MCG 2 PUFF INH (07:50)
[2023-11-10] MEDS: CARDIZEM CD 240 MG PO (07:50)
[2023-11-10] MEDS: CRESTOR 5 MG PO (07:51)
[2023-11-10] MEDS: MUCINEX 1200 MG PO ×2 (07:51→20:29)
[2023-11-10] MEDS: OSCAL 500 + D 500 MG PO ×2 (07:51→20:29)
[2023-11-10] MEDS: VITAMIN B-6 100 MG PO (07:51)
[2023-11-10] MEDS: ASPIR LOW (ENTERIC COATED) 81 MG PO (07:51)
[2023-11-10] MEDS: SINGULAIR 10 MG PO (07:51)
[2023-11-10] MEDS: CELEXA 20 MG PO (07:51)
[2023-11-10] MEDS: ZITHROMAX 250 MG PO (07:51)
[2023-11-10] MEDS: PROTONIX PO (07:52)
[2023-11-10] MEDS: NICODERM TRANSDERMAL 14 MG TRANSDERM (07:52)
[2023-11-10] MEDS: DECADRON 6 MG IV ×3 (07:52→23:11)
--- NOTE | 2023-11-10 10:57 | W.PN.HOSP.TC ---
Today's Communication/Plan
-
Continue bronchodilators
Continue with steroids
Continue azithromycin
Anticough meds
Continue Cardizem
Transfer to telemetry
Assessment / Plan
Assessment / Plan
# Acute COPD exacerbation
-Chronic respiratory failure, o2 dependant at home
-uses 2l at home
-chest x ray with No acute cardiopulmonary process.
-nebs prn for sob/wheezing
-continue supplemental oxygen to keep sat>88
-Decadron 6mg every 8 hours
-bronchodialators
-mucinex/tessalon pearle. Offered Robitussin with codeine for severe cough which patient refused.
-Tolerating azithromycin
-wean as tolerated
-pulmonary consulted
#atrial fib with RVR
-s/p Cardizem drip. Converted to NSR.
-restart home dose Cardizem 240mg
-on asa.
-anticoag per cards. Had a prolonged discussion with patient as with elevated Romario Vasc score and need for anticoagulation. Patient stated she understand the risk of stroke and would like to continue aspirin. States she will talk to her primary
art consultant at [facility] and decide further. Adamantly against starting anticoagulation while here.
-Cards recs
#Elevated trop likely 2/2 afib RVR and AECOPD.
-Trend trop. 1st set elevated
-ECHO on saturday
Active smoker
-denied nicotine patch
-encourage smoking cessation
#Hypothyroidism
-levothyroxine continued
#Hyperlipidemia
-Continue statin
#GERD
-Continue Protonix
#Depression/anxiety
-Continue citalopram
-Continue Xanax
#Chronic back pain
-Continue hydrocodone/Tylenol
#DNR
Tx to tele
Anticipated Discharge: > 48 hours
Subjective/Interval History
-
Date of Service: November 10, 2023
Patient remains in normal sinus rhythm
States of severe cough
Objective Data
-
Labs:
Laboratory Results
11/10/23
05:42
WBC 12.5 H
Hgb 10.7 L
Hct 31.1 L
Plt Count 281
Sodium 132 L
Potassium 4.4
Chloride 97 L
Carbon Dioxide 30
BUN 32 H
Creatinine 0.5 L
Glucose 144 H
Calcium 8.9
Vital Signs:
Vital Signs
Temp Pulse Resp BP Pulse Ox
98.3 F 76 17 101/66 94
11/10/23 07:09 11/10/23 10:00 11/10/23 10:00 11/10/23 10:00 11/10/23 10:00
Physical Exam
-
General: Well Developed and No Apparent Distress
HEENT: Normocephalic, Atraumatic, Moist Mucous Membranes and Oxygen
Respiratory: Wheezes and Rhonchi
Cardiac: Regular Rhythm and S1/S2; Negative Murmur, Rub or Gallop
GI: Soft, Nontender, Nondistended and Normal Bowel Sounds; Negative Organomegaly
Rectal: Deferred by Provider
Musculoskeletal: No Clubbing, No Cyanosis and No Edema
Skin: Negative Rash
Neuro: Awake, Alert, Oriented, AO x 3 and Nonfocal/Grossly Intact
Psych: Calm
Data Reviewed
-
Total Time Spent with Patient (in minutes): 55
[2023-11-10] MEDS: VENTOLIN NEBULES INH (11:30)
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
[2023-11-10] MEDS: VALIUM 5 MG PO ×2 (14:07→22:39)
--- NOTE | 2023-11-10 15:57 | W.PN.PUL3 ---
Today's Communication / Plan
-
Systemic steroids with wean as tolerated
Supplemental oxygen and maintain SpO2 >88%
Encourage incentive spirometer
Walking pulse oximetry prior to discharge
Obtain outpatient pulmonary medical records
Up OOB as tolerated
PT/OT
Strongly encouraged nicotine cessation -encouraged her to use holistic methods, even acupuncture versus hypnosis
Assessment
-
Assessment: 78-year-old female active smoker with a past medical history of COPD, thyroid cancer s/p thyroidectomy, history of SVT and GERD who presents with worsening shortness of breath. Patient has been using her inhalers more frequently. She
also had a stress test recently and developed back pain afterwards. In the ER she was tachycardic to 120, blood pressure 104/73 and she required 2 L a minute with saturations of 92%. In the ER she was hyponatremic to 131, troponin was elevated at
0.047, she had leukocytosis to 11.5, slightly anemic to 11.7, and platelets were 293. COVID antigen was negative. CXR showed no acute cardiopulmonary process. EKG showed A-fib with RVR. She was given IV fluids with 500 cc of NS 0 point percent,
antibiotics with Levaquin, steroids with Solu-Medrol 125 mg, given Cardizem 10 mg and then started on Cardizem drip and admitted to the IMU for further care. Due to concern for acute COPD exacerbation, pulmonary now being consulted for additional
management/recommendations.
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
Impression:
#Acute COPD exacerbation
#Recurrent sinus infections with recent rhinosinusitis infection
#Active tobacco use
#Atrial fibrillation with RVR s/p Cardizem drip
#Elevated troponin -likely type II [place] in the setting of tachycardia with demand ischemia
#Chronic nocturnal hypoxemia on 2L/min with sleep
Plan:
- Continue systemic steroids (decadron 6mg IV q8hr) and wean as tolerated
- Maintain SpO2 >88% and wean O2 as tolerated
- Continue spiriva with albuterol QID
- she is s/p levaquin x1 dose --> continue Azithromycin and give 5 day course mainly for its anti-inflammatory effect
- prn Tessalon perles
- nicotine patch
- raised mucinex to 1200mg q12hr
- obtain outpatient medical records from her automotive mechanical engineer, Dr. Campos (in [place])
- Replete K>3.5, Mg>1.8
- Up OOB as tolerated
- PT/OT
- Maintain MAP>65
- DVT ppx
Pulmonary service will continue to follow along
Data:
CXR 11-08-2023: No acute cardiopulmonary process.
Subjective Data
-
Date of Service:
Date of Service: November 10, 2023
Chief Complaint: Pulmonary Follow Up
Subjective:
Patient resting in bed in no acute distress. Pulse ox 94%. Currently on 2 L/min nasal cannula. No acute events reported from overnight.
Review of Systems
General: Other (Negative unless mentioned above)
Objective Data
Data Reviewed
Vital Signs / I&O / Oxygen:
Vital Signs
Temp Pulse Resp BP Pulse Ox
98.1 F 65 23 115/59 97
11/10/23 11:31 11/10/23 13:13 11/10/23 13:13 11/10/23 12:00 11/10/23 13:13
SaO2 97
Nasal Cannula flow liters per 2
minute
Physical Exam
General: Comfortable
HEENT: Normocephalic and Anicteric
Cardiovascular: S1-S2 and Peripheral Edema (Negative)
Respiratory: Wheeze (Bilaterally), Crackles (Negative) and Rhonchi (Bilaterally)
GI: Soft, Non Distended and Non Tender
Neurology: Awake and Alert
Skin: Warm and Dry
Labs/Micro/Reports
Lab Data
11/10/23 05:42
11/10/23 05:42
Microbiology
11/08/23 23:26 Blood/Venous Blood Culture - Preliminary
No Growth in 24 hours- Final report to follow
11/08/23 23:26 Blood/Venous Blood Culture - Preliminary
No Growth in 24 hours- Final report to follow
11/08/23 21:46 Nasal Swab Influenza Types A & B (DIXIE) - Final
Negative for Influenza A & B, NAAT
Negative results must be combined with clinical observations
and patient history.
Nucleic Acid Amplification test (NAAT)performed on the
[email or web address] platform.
--- NOTE | 2023-11-10 17:03 | PTCARENOTE ---
Patient transferred to [facility]; report given and all belongings sent with patient.
[2023-11-10] MEDS: LOVENOX 40 MG SC (17:28)
[2023-11-10] MEDS: VITAMIN D3 (cholecalciferol) 75 MCG PO (17:28)
[2023-11-10] MEDS: XOPENEX 0.63 MG INHALANT SOLUTION INH (20:17)
[2023-11-10] MEDS: SENOKOT 17.1999999999999993 MG PO (20:29)
[2023-11-10] MEDS: OCEAN, SALINE MIST 2 SPRAYS NASAL (23:16)
[2023-11-11 02:53] VITALS: BP 123/73
[2023-11-11 06:00] VITALS: BMI 20.4
[2023-11-11] MEDS: SYNTHROID 112 MCG PO (06:17)
[2023-11-11 06:55] LABS: Hematocrit 30.1 % (37.0-47.0); Hemoglobin 10.3 g/dL (12.0-16.0); Mean Corp Hgb Conc. 34.2 g/dL (33.0-37.0); Mean Corpuscular Hgb 31.8 pg (27.0-31.0); Mean Corpuscular Volume 92.9 fL (81.0-99.0); Mean Platelet Volume 10.6 fL (7.4-10.4); Platelet Count 300 10^3/uL (130-400); Red Blood Cell Count 3.24 10^6/uL (4.20-5.40); Red Cell Dist. Width 13.3 % (11.5-14.5); White Blood Cell Count 13.4 10^3/uL (4.8-10.8)
[2023-11-11 07:09] LABS: Blood Urea Nitrogen 31 mg/dl (7-17); Calcium 9.2 mg/dl (8.4-10.2); Carbon Dioxide 30 mmol/L (22-30); Chloride 96 mmol/L (98-107); Estimated Creatinine Clearance 59 ml/min; Glucose 153 mg/dl (70-99); Potassium 4.7 mmol/L (3.5-5.1); Sodium 133 mmol/L (135-145); eGFR > 60.00
[2023-11-11] MEDS: CRESTOR 5 MG PO (07:42)
[2023-11-11] MEDS: ASPIR LOW (ENTERIC COATED) 81 MG PO (07:42)
[2023-11-11] MEDS: NICODERM TRANSDERMAL 14 MG TRANSDERM (07:42)
[2023-11-11] MEDS: CELEXA 20 MG PO (07:42)
[2023-11-11] MEDS: VITAMIN B-6 100 MG PO (07:42)
[2023-11-11] MEDS: PROTONIX PO ×2 (07:43→07:52)
[2023-11-11] MEDS: OSCAL 500 + D 500 MG PO ×2 (07:43→20:04)
[2023-11-11] MEDS: MUCINEX 1200 MG PO ×2 (07:43→20:04)
[2023-11-11] MEDS: CARDIZEM CD PO (07:43)
[2023-11-11] MEDS: SINGULAIR 10 MG PO (07:43)
[2023-11-11] MEDS: DECADRON 6 MG IV ×2 (07:43→20:02)
[2023-11-11] MEDS: ZITHROMAX 250 MG PO (07:43)
[2023-11-11 07:47] VITALS: BP 105/46
[2023-11-11] MEDS: XOPENEX 0.63 MG INHALANT SOLUTION 0.630000000000000004 MG INH ×3 (07:58→19:26)
[2023-11-11] MEDS: SPIRIVA RESPIMAT 2.5 MCG 2 PUFF INH (07:58)
--- NOTE | 2023-11-11 11:01 | W.PN.HOSP.TC ---
Today's Communication/Plan
-
PT assessment
Ambulatory pulse ox on room air
Assessment / Plan
Assessment / Plan
Gen-AAOx3, NAD
HEENT-NC, AT, anicteric, clear oral mm
Neck-supple
CV-reg, no M, +S1/S2
Lungs-bilateral expiratory wheezing
Abd-soft, NT, ND
Ext-no edema
Musculoskeletal-no cyanosis, clubbing
Skin-warm and dry
Neuro-grossly non-focal
Psych-calm, cooperative
Acute on chronic hypoxic respiratory failure - due to acute COPD exacerbation. She uses oxygen at home, primarily at nighttime, 2 L. Check ambulatory pulse ox on room air to assess need for daytime oxygen.
Acute COPD exacerbation -still wheezing. Patient states she is feeling better. Add Acapella.
-Chronic respiratory failure, o2 dependant at home
-uses 2l at home only at nighttime
-chest x ray with No acute cardiopulmonary process.
-nebs prn for sob/wheezing
-continue supplemental oxygen to keep sat>88
-Decadron 6mg, reduced to every 12h
-bronchodialators
-mucinex/tessalon pearle. Offered Robitussin with codeine for severe cough which patient refused.
-Tolerating azithromycin
-wean as tolerated
-pulmonary consulted
atrial fib with RVR
-s/p Cardizem drip. Converted to NSR.
-restart home dose Cardizem 240mg
-on asa.
-anticoag per cards. Had a prolonged discussion with patient as with elevated Romario Vasc score and need for anticoagulation. Patient stated she understand the risk of stroke and would like to continue aspirin. States she will talk to her primary
bin filler at [facility] and decide further. Adamantly against starting anticoagulation while here.
-Cards recs
Elevated trop likely 2/2 afib RVR and AECOPD.
-Trend trop. 1st set elevated
Tobacco dependence
-denied nicotine patch
-encourage smoking cessation
Hypothyroidism
-levothyroxine continued
#Hyperlipidemia
-Continue statin
#GERD
-Continue Protonix
#Depression/anxiety
-Continue citalopram
-Continue Xanax
#Chronic back pain
-Continue hydrocodone/Tylenol
#DNR
Dispo -need physical therapy to reevaluate, they recommended SNF when I saw the patient on 11/09. Check ambulatory pulse ox on room air. Patient eager to go home.
Anticipated Discharge: Within 24 hours
Subjective/Interval History
-
Date of Service: November 11, 2023
Patient seen and examined. Feeling better, denies shortness of breath. Asking about discharge plans.
Objective Data
-
Labs:
Laboratory Results
11/11/23
06:23
WBC 13.4 H
Hgb 10.3 L
Hct 30.1 L
Plt Count 300
Sodium 133 L
Potassium 4.7
Chloride 96 L
Carbon Dioxide 30
BUN 31 H
Creatinine 0.7
Glucose 153 H
Calcium 9.2
Vital Signs:
Vital Signs
Temp Pulse Resp BP Pulse Ox
98.3 F 62 16 105/46 96
11/11/23 07:47 11/11/23 08:02 11/11/23 08:02 11/11/23 07:47 11/11/23 08:58
Review of Systems
-
History Source: Patient
All other systems: Reviewed and negative
[2023-11-11] MEDS: VALIUM 5 MG PO ×2 (11:27→20:16)
[2023-11-11 13:22] VITALS: BP 125/66
--- NOTE | 2023-11-11 14:39 | W.PN.PUL3 ---
Today's Communication / Plan
-
O2
CS
BDs
Atb
Dispo
Assessment
-
Assessment: 78-year-old female active smoker with a past medical history of COPD, thyroid cancer s/p thyroidectomy, history of SVT and GERD who presents with worsening shortness of breath. Patient has been using her inhalers more frequently. She
also had a stress test recently and developed back pain afterwards. In the ER she was tachycardic to 120, blood pressure 104/73 and she required 2 L a minute with saturations of 92%. In the ER she was hyponatremic to 131, troponin was elevated at
0.047, she had leukocytosis to 11.5, slightly anemic to 11.7, and platelets were 293. COVID antigen was negative. CXR showed no acute cardiopulmonary process. EKG showed A-fib with RVR. She was given IV fluids with 500 cc of NS 0 point percent,
antibiotics with Levaquin, steroids with Solu-Medrol 125 mg, given Cardizem 10 mg and then started on Cardizem drip and admitted to the IMU for further care. Due to concern for acute COPD exacerbation, pulmonary now being consulted for additional
management/recommendations.
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
Impression:
#Acute COPD exacerbation
#Recurrent sinus infections with recent rhinosinusitis infection
#Active tobacco use
#Atrial fibrillation with RVR s/p Cardizem drip
#Elevated troponin -likely type II [place] in the setting of tachycardia with demand ischemia
#Chronic nocturnal hypoxemia on 2L/min with sleep
Plan:
O2 protocol
Back to baseline O2 2L (which she uses only qhs at home)
POx at rest 86% , required 3L O2 on 200 ft walking 11-11
- Continue systemic steroids (decadron 6mg IV q8hr weaned to 6 mg q12 on 11-11)
Can convert to prednisone 40 mg qd on 11-12 if improvement continues, then taper by 10 mg q3d to off
- Maintain SpO2 >88% and wean O2 as tolerated
- Continue spiriva, continue levabuterol tid and alb ns prn
Resume wixela upon d/c
- she is s/p levaquin x1 dose --> continue Azithromycin and give 5 day course mainly for its anti-inflammatory effect
- prn Tessalon perles
- nicotine patch
- raised mucinex to 1200mg q12hr, d/c upon d/c
Follows with grocery store clerk, Dr. Campos (in [place])
- Up OOB as tolerated
- PT/OT
- DVT ppx
DNR
Disposition
Data:
CXR 11-08-2023: No acute cardiopulmonary process.
Subjective Data
-
Date of Service:
Date of Service: November 11, 2023
Chief Complaint: Pulmonary Follow Up
Subjective:
No major events reported overnight
Reports significant improvement in dyspnea
Back to baseline O2 requirement at 2L (which she uses at home only qhs)
Review of Systems
General: Fever (n), Sweats (n), Chills (n) and Satisfactory Appetite
HEENT: Epistaxis (n) and Dysphagia (n)
Cardiopulmonary: Dyspnea on Exertion, Cough, Sputum Production, Wheezing and Chest Pain (n)
GI: Abdominal Pain (n), Nausea (n) and Vomiting (n)
Neuro: Weakness
Objective Data
Data Reviewed
Vital Signs / I&O / Oxygen:
Vital Signs
Temp Pulse Resp BP Pulse Ox
97.6 F 69 16 125/66 93
11/11/23 13:22 11/11/23 13:55 11/11/23 13:55 11/11/23 13:22 11/11/23 13:55
SaO2 93
Nasal Cannula flow liters per 2
minute
Physical Exam
General: Comfortable
HEENT: Normocephalic, Anicteric and Moist Mucous Membranes
Cardiovascular: S1-S2, Regular Rhythm and Peripheral Edema (Negative)
Respiratory: Wheeze (trace), Crackles (Negative), Rhonchi (Bilaterally), Non-Labored Respirations and Stridor (n)
GI: Soft, Non Distended and Non Tender
Neurology: Awake, Alert, AO x 3 and No Motor Deficits
Skin: Warm and Dry
Labs/Micro/Reports
Lab Data
11/11/23 06:23
11/11/23 06:23
Microbiology
11/08/23 23:26 Blood/Venous Blood Culture - Preliminary
No Growth in 48 hours- Final report to follow
11/08/23 23:26 Blood/Venous Blood Culture - Preliminary
No Growth in 48 hours- Final report to follow
11/08/23 21:46 Nasal Swab Influenza Types A & B (DIXIE) - Final
Negative for Influenza A & B, NAAT
Negative results must be combined with clinical observations
and patient history.
Nucleic Acid Amplification test (NAAT)performed on the
[employer] platform.
--- NOTE | 2023-11-11 15:29 | WOUNDNOTE ---
[facility] RN note: Patient admitted with left back burn
See H&P for complete history.
PMH: COPD, Afib, tabacco dependence
Wound Location and type/assessment: Patient admitted with: Left back burn. Patient states she burned herself by laying on her heating pad for too long. Wound is now scabbed, but patient said it was initially sore and bleeding. No erythema, or
drainage noted.
Appetite: Fair
Pressure redistribution devices in place: Accumax, turns self in bed
Plan: Keep back scabbed area cleaned and covered with silicone border foam. Instructed patient to lower temperature and duration of heating pad. DAVID Fabian updated. Will follow as needed.
Note to case management of equipment requested for discharge:
[2023-11-11] MEDS: NORCO 7.5/325 1 TABLET PO (15:53)
[2023-11-11 16:21] VITALS: BP 130/61
--- NOTE | 2023-11-11 16:43 | CM ---
Reviewed chart, met with patient to obtain information for assessment. Patient stated that she lives in a channing home with one step to enter with her son who is sometimes there and sometimes at his girlfriend's house. Patient stated that she is
independent with her ADLs, personal care, bathing, dressing and toileting. She ambulates without the use of an assistive device.
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
She wears 2 liters of o2 at night.
She has a shower chair that she does not use.
Patient drives and can get to her appointments and do all of her own shopping.
Patient has a prescription plan and uses [facility] in [place] for all of her medications.
Her PCP is Allie Whittaker.
Patient had VN services in the past through . She has had a rehab stay at [facility] [facility].
Patient expressed that physically she feels she is at her baseline and she would like to return home when stable. She does not feel that she will have any needs for CM.
Plan: Case management will continue to follow and assist with discharge planning. Tentative home when stable.
[2023-11-11] MEDS: LOVENOX 40 MG SC (17:11)
[2023-11-11] MEDS: VITAMIN D3 (cholecalciferol) 75 MCG PO (17:11)
[2023-11-11 20:08] VITALS: BP 130/68
[2023-11-11] MEDS: SENOKOT 17.1999999999999993 MG PO (21:11)
[2023-11-11] MEDS: TUMS 2 TABLET PO (21:44)
[2023-11-11 23:15] VITALS: BP 145/64
[2023-11-12 03:30] VITALS: BP 145/75
[2023-11-12] MEDS: SYNTHROID 112 MCG PO (06:21)
[2023-11-12 06:50] LABS: Hematocrit 30.6 % (37.0-47.0); Hemoglobin 10.4 g/dL (12.0-16.0); Mean Corpuscular Hgb 31.8 pg (27.0-31.0); Mean Corpuscular Volume 93.6 fL (81.0-99.0); Mean Platelet Volume 10.9 fL (7.4-10.4); Platelet Count 284 10^3/uL (130-400); Red Blood Cell Count 3.27 10^6/uL (4.20-5.40); Red Cell Dist. Width 13.2 % (11.5-14.5); White Blood Cell Count 8.6 10^3/uL (4.8-10.8)
[2023-11-12 07:10] VITALS: BP 139/68
[2023-11-12] MEDS: ZITHROMAX 250 MG PO (07:16)
[2023-11-12] MEDS: CRESTOR 5 MG PO (07:16)
[2023-11-12] MEDS: ASPIR LOW (ENTERIC COATED) 81 MG PO (07:16)
[2023-11-12] MEDS: SINGULAIR 10 MG PO (07:16)
[2023-11-12] MEDS: CARDIZEM CD 240 MG PO (07:16)
[2023-11-12] MEDS: MUCINEX 1200 MG PO (07:16)
[2023-11-12] MEDS: CELEXA 20 MG PO (07:16)
[2023-11-12] MEDS: OSCAL 500 + D 500 MG PO (07:16)
[2023-11-12] MEDS: VITAMIN B-6 100 MG PO (07:17)
[2023-11-12] MEDS: NICODERM TRANSDERMAL 14 MG TRANSDERM (07:17)
[2023-11-12] MEDS: DECADRON 6 MG IV (07:17)
[2023-11-12] MEDS: PROTONIX PO (07:19)
[2023-11-12] MEDS: NORCO 7.5/325 1 TABLET PO (07:29)
[2023-11-12 07:42] LABS: Blood Urea Nitrogen 27 mg/dl (7-17); Carbon Dioxide 32 mmol/L (22-30); Chloride 97 mmol/L (98-107); Estimated Creatinine Clearance 59 ml/min; Glucose 137 mg/dl (70-99); Potassium 4.6 mmol/L (3.5-5.1); Sodium 132 mmol/L (135-145); eGFR > 60.00
[2023-11-12] MEDS: SPIRIVA RESPIMAT 2.5 MCG 2 PUFF INH (08:04)
[2023-11-12] MEDS: XOPENEX 0.63 MG INHALANT SOLUTION 0.630000000000000004 MG INH ×2 (08:04→14:05)
[2023-11-12] MEDS: VALIUM 5 MG PO (10:55)
--- NOTE | 2023-11-12 11:07 | W.PN.HOSP.TC ---
Addendum entered and electronically signed by Neal Mayen, 11/13/23 11:34:
Hyponatremia
Addendum entered and electronically signed by Neal Mayen, 11/12/23 14:12:
Acute TME was miss charted, wrong patient.
Addendum entered and electronically signed by Neal Mayen, 11/12/23 14:11:
Acute TME -unclear etiology
Original Note:
Today's Communication/Plan
-
Discharge
Assessment / Plan
Assessment / Plan
Gen-AAOx3, NAD
HEENT-NC, AT, anicteric, clear oral mm
Neck-supple
CV-reg, no M, +S1/S2
Lungs-decreased breath sounds bilaterally
Abd-soft, NT, ND
Ext-no edema
Musculoskeletal-no cyanosis, clubbing
Skin-warm and dry
Neuro-grossly non-focal
Psych-calm, cooperative
Acute on chronic hypoxic respiratory failure - due to acute COPD exacerbation. She uses oxygen at home, primarily at nighttime, 2 L. Pulse ox at rest on room air 86%, improved to 91% on 3 L with ambulation 200 feet. Will need home oxygen day and
night on discharge. Case management aware.
Acute COPD exacerbation -still wheezing. Patient states she is feeling better. Add Acapella.
-Chronic respiratory failure, o2 dependant at home
-uses 2l at home only at nighttime
-chest x ray with No acute cardiopulmonary process.
-nebs prn for sob/wheezing
-continue supplemental oxygen to keep sat>88
-Decadron 6mg, reduced to every 12h
-bronchodialators
-mucinex/tessalon pearle. Offered Robitussin with codeine for severe cough which patient refused.
-Tolerating azithromycin
-wean as tolerated
-pulmonary consulted
atrial fib with RVR
-s/p Cardizem drip. Converted to NSR.
-restart home dose Cardizem 240mg
-on asa.
-anticoag per cards. Had a prolonged discussion with patient as with elevated Romario Vasc score and need for anticoagulation. Patient stated she understand the risk of stroke and would like to continue aspirin. States she will talk to her primary
sales trader at [facility] and decide further. Adamantly against starting anticoagulation while here.
-Cards recs
Elevated trop likely 2/2 afib RVR and AECOPD.
-Trend trop. 1st set elevated
Tobacco dependence
-denied nicotine patch
-encourage smoking cessation
Hypothyroidism
-levothyroxine continued
#Hyperlipidemia
-Continue statin
#GERD
-Continue Protonix
#Depression/anxiety
-Continue citalopram
-Continue Xanax
#Chronic back pain
-Continue hydrocodone/Tylenol
#DNR
Dispo -patient not interested in SNF. She also declined VN. Stable for discharge home today. Outpatient follow-up with PCP and pulmonary.
Patient is in need of oxygen at 3 liters/minute via nasal cannula continuously due to pulse oximetry of 86% on room air at rest. Oxygen will help to improve hypoxemia. Patient is mobile within the home. DuoNeb therapy has been tried and is
ineffective in treating hypoxemia related symptoms. Oxygen is needed to improve symptoms.
35 minutes spent in discharge process.
Anticipated Discharge: Today
Subjective/Interval History
-
Date of Service: November 12, 2023
Patient seen and examined. Denies shortness of breath. No complaints.
Objective Data
-
Labs:
Laboratory Results
11/12/23
06:08
WBC 8.6
Hgb 10.4 L
Hct 30.6 L
Plt Count 284
Sodium 132 L
Potassium 4.6
Chloride 97 L
Carbon Dioxide 32 H
BUN 27 H
Creatinine 0.7
Glucose 137 H
Calcium 9.0
Vital Signs:
Vital Signs
Temp Pulse Resp BP Pulse Ox
98.3 F 68 16 139/68 97
11/12/23 07:10 11/12/23 08:04 11/12/23 08:04 11/12/23 07:16 11/12/23 08:04
I&O
11/11/23 11/12/23 11/13/23
06:59 06:59 06:59
Intake Total 960 / 960
Balance 960 / 960
Review of Systems
-
History Source: Patient
All other systems: Reviewed and negative
[2023-11-12 11:10] VITALS: BP 112/57
--- NOTE | 2023-11-12 11:16 | W.DS.TRANS ---
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
-
Discharge Instructions:
Sleep Apnea Risk Low
Discharge Diagnosis/Procedures Acute COPD exacerbation, rapid atrial
fibrillation
Diet 2 Gram Sodium,Low Cholesterol
Activity As tolerated
Driving Restrictions As prior to admission
Bathing Restrictions None
Instructions:
Stand-Alone Forms:
Changes to Home Medications: No
Discharge Medications:
DC Medications w/original date entered in [employer]
albuterol sulfate 2.5 mg/3 mL (0.083 %) solution for nebulization 2.5 mg inhalation R Q6 PRN sob 07/05/22
alprazolam 0.5 mg tablet 0.5 mg PO TID PRN anxiety 07/05/22
ascorbic acid (vitamin C) 1,000 mg tablet (Vitamin C) 1,000 mg PO DAILY Supplement 07/05/22
aspirin 81 mg tablet,delayed release 81 mg PO DAILY Blood clot prevention/tx 07/05/22
calcium carbonate 500 mg-vitamin D3 10 mcg (400 unit) chewable tablet (Calcium 500 + D) 1 tab PO BID Supplement 07/05/22
cholecalciferol (vitamin D3) 25 mcg (1,000 unit) tablet (Vitamin D3) 75 mcg PO QPM Supplement 07/05/22
citalopram 20 mg tablet 20 mg PO DAILY Depression 07/05/22
denosumab 60 mg/mL subcutaneous syringe (Prolia) 60 mg SC [id number] osteoporosis 07/05/22
diltiazem HCl 240 mg capsule,extended release 24 hr 240 mg PO DAILY Arrhythmia 07/05/22
fluticasone 250 mcg-salmeterol 50 mcg/dose blistr powdr for inhalation (Wixela Inhub) 1 ea inhalation R BID Lung/breathing issues 07/05/22
hydrocodone 10 mg-acetaminophen 325 mg tablet 1 tab PO Q4H PRN moderate pain 07/05/22
levothyroxine 112 mcg tablet (Synthroid) 56 mcg PO JEAN Thyroid 07/05/22
levothyroxine 112 mcg tablet (Synthroid) 112 mcg PO MOTUWETHFRSA Thyroid 07/05/22
montelukast 10 mg tablet 10 mg PO DAILY Allergies 07/05/22
pantoprazole 40 mg tablet,delayed release 40 mg PO DAILY Gastrointestinal issue 07/05/22
pyridoxine (vitamin B6) 100 mg tablet (Vitamin B-6) 100 mg PO DAILY Supplement 07/05/22
rosuvastatin 5 mg tablet 5 mg PO DAILY High cholesterol 07/05/22
tiotropium bromide 2.5 mcg/actuation mist for inhalation (Spiriva Respimat) 2 puff inhalation R DAILY Lung/breathing issues 07/05/22
fluticasone propionate 50 mcg/actuation nasal spray,suspension 1 spray intranasal DAILY Allergies 12/21/22
levalbuterol HCl 0.63 mg/3 mL solution for nebulization 0.63 mg inhalation R TID Lung/breathing issues 12/21/22
diazepam 5 mg tablet 5 mg PO TID PRN muscle spasm #0 tabs 12/24/22
nicotine 14 mg/24 hr daily transdermal patch 14 mg transdermal DAILY #14 ea 12/24/22
azithromycin 250 mg tablet 250 mg PO DAILY #1 tab 11/12/23
guaifenesin 600 mg tablet, extended release 12 hr 1,200 mg PO Q12 #0 tabs 11/12/23
prednisone 10 mg tablet 10 mg PO DIRECTED #30 tabs 11/12/23
sodium chloride 0.65 % nasal spray aerosol (Saline Nasal) 2 sprays intranasal QIDPRN PRN dry nose/congestion #0 mL 11/12/23
Home Medication Changes
Pending Results: No
[2023-11-12 11:35] VITALS: O2SAT 95
--- NOTE | 2023-11-12 11:37 | CM ---
Addendum entered by LUISA Sandoval 11/12/23 15:29:
Placed a call to patient's daughter to confirm plan. She did not answer but called right back. She confirmed that she has patient's portable o2 and that her concentrator is in good working order as she called the [facility] to make sure that
everything is up to date and in working order. She stated that she will be in later to pick patient up. RN made aware.
Original Note:
Reviewed chart, spoke with attending who stated that patient needs o2 for daytime. Met with patient to discuss. PT was also in room. Patient stated that she has portable o2 and she will have her son bring it when he picks her up so that she can wear
it home. RN updated and aware that patient can't leave unless she has the o2. Attending made aware as well.
Plan: Case management will continue to follow and assist with discharge planning. Home, patient refusing o2 as she states that she has it at home and refusing SNF and VN services.
--- NOTE | 2023-11-12 14:36 | PN.CDI ---
CDI
- -
CDI:
Physician Documentation Request
Admit Date: 11/08/23 23:19
Dear Doctor Faheem,
Patient admitted with COPD exacerbation.
See Na levels below:
Patient received IV NSS.
Laboratory Tests
11/08/23 11/09/23 11/10/23
21:46 05:31 05:42
Sodium 131 L 133 L 132 L
11/11/23 11/12/23
06:23 06:08
Sodium 133 L 132 L
Based on the above, could you clarify in the progress notes, the appropriate diagnosis, if significant, that supports the above abnormalities and additional evaluation, monitoring and/or treatment rendered:
Hyponatremia
Insignificant abnormal lab findings
Other
Use of terms such as suspected, likely, concern for, or probable (associated with a specific diagnosis that is being evaluated, monitored, or treated as if it exists) are acceptable and can be coded in the inpatient setting, when documented at the
time of discharge.
Thank you,
Carin HENSON,RN,CCDS
CDI Specialist
Available via [employer] text
Please use your independent medical judgment in providing your response.
[2023-11-12 15:20] VITALS: BP 119/63
--- NOTE | 2023-11-12 16:25 | W.PN.PUL3 ---
Today's Communication / Plan
-
O2
Atb
CS
BD
Dispo
Reconsult prn
Assessment
-
Assessment: 78-year-old female active smoker with a past medical history of COPD, thyroid cancer s/p thyroidectomy, history of SVT and GERD who presents with worsening shortness of breath. Patient has been using her inhalers more frequently. She
also had a stress test recently and developed back pain afterwards. In the ER she was tachycardic to 120, blood pressure 104/73 and she required 2 L a minute with saturations of 92%. In the ER she was hyponatremic to 131, troponin was elevated at
0.047, she had leukocytosis to 11.5, slightly anemic to 11.7, and platelets were 293. COVID antigen was negative. CXR showed no acute cardiopulmonary process. EKG showed A-fib with RVR. She was given IV fluids with 500 cc of NS 0 point percent,
antibiotics with Levaquin, steroids with Solu-Medrol 125 mg, given Cardizem 10 mg and then started on Cardizem drip and admitted to the IMU for further care. Due to concern for acute COPD exacerbation, pulmonary now being consulted for additional
management/recommendations.
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
Impression:
#Acute COPD exacerbation
#Recurrent sinus infections with recent rhinosinusitis infection
#Active tobacco use
#Atrial fibrillation with RVR s/p Cardizem drip
#Elevated troponin -likely type II NM in the setting of tachycardia with demand ischemia
#Chronic nocturnal hypoxemia on 2L/min with sleep
Plan:
O2 protocol
Back to baseline O2 2L (which she uses only qhs at home), POx 91%
POx at rest 86% , required 3L O2 on 200 ft walking 11-11
- Continue systemic steroids (decadron 6mg IV q8hr weaned to 6 mg q12 on 11-11)
Can convert to prednisone 40 mg qd on 11-12, then taper by 10 mg q3d to off
- Continue spiriva
Continue levalbuterol tid and alb ns prn, return to albuterol HFA prn upon d/c
Resume wixela upon d/c
- she is s/p levaquin x1 dose --> continue Azithromycin and give 5 day course mainly for its anti-inflammatory effect
- prn Tessalon perles
- nicotine patch
- raised mucinex to 1200mg q12hr, d/c upon d/c
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 Campos (in [place])
- OOB as tolerated
- PT/OT
- DVT ppx
DNR
Disposition efforts
D/c plan today
Data:
CXR 11-08-2023: No acute cardiopulmonary process.
Subjective Data
-
Date of Service:
Date of Service: November 12, 2023
Chief Complaint: Pulmonary Follow Up
Subjective:
No major events reported
Resp west continues improving
Review of Systems
General: Fever (n), Sweats (n), Chills (n) and Satisfactory Appetite (n)
HEENT: Epistaxis (n) and Dysphagia (n)
Cardiopulmonary: Dyspnea (n at rest on O2), Dyspnea on Exertion, Cough, Sputum Production (trace), Wheezing (trace intermittent), Chest Pain (n) and Edema
GI: Abdominal Pain (n), Nausea (n) and Vomiting
Neuro: Weakness
Objective Data
Data Reviewed
Vital Signs / I&O / Oxygen:
Vital Signs
Temp Pulse Resp BP Pulse Ox
98.4 F 55 16 112/57 91
11/12/23 11:10 11/12/23 14:08 11/12/23 14:08 11/12/23 11:10 11/12/23 14:08
Intake and Output
0211/12/23 11/13/23
06:59 06:59 06:59
Intake Total 960 / 960
Balance 960 / 960
SaO2 91
Nasal Cannula flow liters per 2
minute
Physical Exam
General: Comfortable
HEENT: Normocephalic, Anicteric and Moist Mucous Membranes
Cardiovascular: S1-S2, Regular Rhythm, JVD (n) and Peripheral Edema (Negative)
Respiratory: Wheeze (n), Crackles (Negative), Rhonchi (Bilaterally), Non-Labored Respirations and Stridor (n)
GI: Soft, Non Distended, Non Tender and Normal Bowel Sounds
Neurology: Awake, Alert, AO x 3 and No Motor Deficits
Skin: Warm and Dry
Labs/Micro/Reports
Lab Data
11/12/23 06:08
11/12/23 06:08
Microbiology
11/08/23 23:26 Blood/Venous Blood Culture - Preliminary
No Growth in 72 hours- Final report to follow
11/08/23 23:26 Blood/Venous Blood Culture - Preliminary
No Growth in 72 hours- Final report to follow
[2023-11-12] MEDS: VITAMIN D3 (cholecalciferol) 75 MCG PO (17:13)
[2023-11-12] MEDS: LOVENOX 40 MG SC (17:14)
== END 2023-11-12 18:42 | disposition home or self-care (01) | DRG 191 ==
LOC: 3 WEST ACU 23:19
PROVIDERS: Hospitalist; Registered Nurse; ADMITTING PHYSICIAN Internal Medicine; ATTENDING PHYSICIAN Hospitalist; CONSULT PHYSICIAN Internal Medicine Cardiovascular Disease; EMERGENCY PHYSICIAN Emergency Medicine; FAMILY PHYSICIAN Family Medicine Geriatric Medicine; OTHER PHYSICIAN Internal Medicine Critical Care Medicine
DX: J44.1 Chronic obstructive pulmonary disease with (acute) exacerbation (principal); E87.1 Hypo-osmolality and hyponatremia; I5A Non-ischemic myocardial injury (non-traumatic); I47.10 Supraventricular tachycardia, unspecified; J96.11 Chronic respiratory failure with hypoxia; I48.0 Paroxysmal atrial fibrillation; F17.210 Nicotine dependence, cigarettes, uncomplicated; Z66 Do not resuscitate; E89.0 Postprocedural hypothyroidism; F41.9 Anxiety disorder, unspecified; F32.A Depression, unspecified; M54.9 Dorsalgia, unspecified; G89.29 Other chronic pain; Z79.82 Long term (current) use of aspirin; Z85.850 Personal history of malignant neoplasm of thyroid; Z99.81 Dependence on supplemental oxygen
CPT/HCPCS: 71045; 80048; 80053; 82550; 83880; 84145; 84484; 85025; 85027; 87040; 87502; 87811; 93005; 94640; 96365; 96367; 96375; 97163; 97166; 97530; 99285; 99406